=== PATIENT | female | born 1945 | race Hispanic/Latino ===

== ENCOUNTER 2024-07-31 06:04 | Emergency (ER) | payer MEDICARE ==
[~2024-07-31] VITALS: Ht 154.9 cm; Wt 54.4 kg
[~2024-07-31 06:04] MED LIST: ASPIRIN CHEW81 MG PO; CEFDINIR300 MG PO; CEPHALEXIN500 MG PO; ESIDRIX25 MG PO; FLOMAX0.4 MG PO; LISINOPRIL20 MG PO; ONDANSETRON ODT4 MG PO; PANTOPRAZOLE SO40 MG PO
[2024-07-31 06:10] VITALS: PULSE 69; RESP 16; TEMP 98.5
[2024-07-31 06:26] LABS: BASOPHILS % 0.5 % (0.0-1.0); EOSINOPHILS # (AUTO) 0.1 (0.0-0.4); EOSINOPHILS % 1.8 % (0.0-6.0); HEMATOCRIT 39.5 % (34.2-44.1); HEMOGLOBIN 12.4 g/dL (12.0-16.0); LYMPHOCYTES # (AUTO) 1.7 (1.0-3.2); LYMPHOCYTES % 30.5 % (18.0-39.1); MEAN CORPUSCULAR HEMOGLOBIN 29.3 pg (28-32); MEAN CORPUSCULAR HGB CONC 31.4 g/dL (31-35); MEAN CORPUSCULAR VOLUME 93.4 fL (81-99); MONOCYTES # (AUTO) 0.4 (0.2-0.8); NEUTROPHILS # (AUTO) 3.3 (2.1-6.9); PLATELET COUNT 317 x10e3/uL (140-360); RED BLOOD COUNT 4.23 x10e6/uL (3.6-5.1); RED CELL DISTRIBUTION WIDTH 13.5 % (11.7-14.4); WHITE BLOOD COUNT 5.54 x10e3/uL (4.8-10.8)
[2024-07-31] MEDS: SODIUM CHLORIDE 0.9% 1000ML 1,000 ML IV STA (06:31)
[2024-07-31] MEDS: DICYCLOMINE HCL 20 MG/2 ML VIAL IM ONE (06:31)
[2024-07-31] MEDS ORDERED: DICYCLOMINE HCL20 MG PO (06:44)
[2024-07-31 06:50] LABS: ALBUMIN 4.1 g/dL (3.5-5.0); ALBUMIN/GLOBULIN RATIO 1.3 (0.8-2.0); ANION GAP 14.4 mmol/L (8-16); BILIRUBIN,TOTAL 1.3 mg/dL (0.2-1.2); CALCIUM 9.3 mg/dL (8.4-10.2); CREATININE, SERUM 0.74 mg/dL (0.57-1.11); TOTAL PROTEIN 7.2 g/dL (6.5-8.1)
[2024-07-31 06:53] LABS: POTASSIUM 3.4 mmol/L (3.5-5.1)
[2024-07-31 07:39] VITALS: BP 190/96; PULSE 64; RESP 16; O2SAT 100
== END 2024-07-31 07:30 | disposition home or self-care (01) ==
LOC: ER 06:12
DX: R19.7 Diarrhea, unspecified (principal); I10 Essential (primary) hypertension; R32 Unspecified urinary incontinence
CPT/HCPCS: 36415; 80053; 85025; 99284; J0500; J7030